=== PATIENT | female | born 1995 | race Caucasian/White ===

== ENCOUNTER 2017-04-03 12:46 | Emergency (ER) | payer OTHER ==
[~2017-04-03] VITALS: Ht 157.5 cm; Wt 50.0 kg
[~2017-04-03 12:46] MED LIST: IMI100 PO; NORE1TAB62 PO; ONDA4TAB9 PO; OXYC-474 PO; OXYC1TAB24 PO; POLY17PO6 PO; PROP10TA8 PO
[2017-04-03 13:00] VITALS: BP 112/61; PULSE 91; RESP 16; O2SAT 100
--- NOTE | 2017-04-03 13:22 | ED.REPORT ---
HPI-General Illness Date of Service April 03, 2017 ED Provider: Jace Frye MD 22 year old female presents to the ER for recovery from heroin abuse, requesting a prescription for Suboxone. She denies any significant underlying medical conditions, fever, chills, nausea, vomiting, and any other current illness. Patient does not voice any further medical complaints at this time. Nursing Notes Stated Complaint: NEED TO SEE THU BARNES Chief Complaint: General Complaint Nursing Notes Reviewed: Yes Allergies: Coded Allergies: No Known Allergies (Verified Allergy, Unknown, 04/03/17) Scheduled Buprenorphine HCl/Naloxone HCl (Suboxone 8 mg-2 mg Sl Film) 1 Each Film 1 EACH SL DAILY Norethindrone A-E Estradiol (Microgestin) 1 Each Tablet 1 TAB PO DAILY Polyethylene Glycol 3350 (Miralax) 17 Gm Powd.pack 17 GM PO DAILY Propranolol HCl (Propranolol HCl) 10 Mg Tablet 10 MG PO BID Sumatriptan (Imitrex) 100 Mg Tablet 100 MG PO PRN Scheduled PRN Ondansetron ODT (Zofran ODT) 4 Mg Tablet 4 MG PO Q4H PRN PRN For Nausea Oxycodone (Roxicodone) 5 Mg Tablet 5 MG PO Q4H PRN PRN For Pain oxyCODONE-Acetaminophen 5-325 mg (oxyCODONE-Acetaminophen 5-325 mg) 1 Each Tablet 1 TAB PO DAILY PRN PRN PRN General Time Seen by MD: 13:22 Chief Complaint Other (Heroin Abuse) Hx Obtained From: Patient Arrived By: Walk-in Sudden in Onset?: No Context Related History: Reports Drug use/abuse suspected Past Medical History Past Medical History pituitary cyst Past Surgical History back surgery Smoking History Former Smoker Social History Alcohol Use: Denies alcohol use Drug Use: IV drugs (Heroin) Other Social History: Good social support Occupation lives with boyfriend Ambulatory Status Independent Review of Systems Full Review of Systems Constitutional: Denies: Chills, Fever Respiratory: Denies: Non-productive cough, Shortness of breath Cardiovascular: Denies: Chest pain GI: Denies: Abdominal pain, Diarrhea, Nausea, Vomiting Complete sys rev & neg: except as marked. Physical Exam Vital Signs Vital Signs Date Time Temp Pulse Resp B/P Pulse Ox O2 Delivery O2 Flow Rate FiO2 04/03/17 13:00 36.3 91 16 112/61 100 Room Air Initial VS: Reviewed General/Constitutional: Well-developed, Well-nourished Head / Eyes: Atraumatic, Normocephalic, PERRL Neck: Supple, Non-tender, Full range of motion Skin: Warm, Dry, No cyanosis Neurologic: Alert, Oriented, Nonfocal Psychiatric: Mood/affect normal, Behavior normal, Normal thought content Upper Extremities Upper Extremity / MS: Inspection NL, No swelling, Non-tender, No erythema, No deformity, Neurologic intact, Vascular intact, No clubbing/cyanosis Lower Extremity / Pelvis / MS: Inspection NL, No swelling, Non-tender, No erythema, No deformity, Neurologic intact, Vascular intact, No edema Re-Eval/Medical Decision Time of Eval: 13:27 Re-Evaluation/Progress Note: Discussed plan to discharge with plan for close follow-up at [facility]. Patient is amenable to the plan. Return precautions given. All other questions addressed. Counseled Regarding: Diagnosis, Need for follow-up, When/why to return to ED Discharge & Departure Primary Impression: Opiate abuse, continuous Disposition: Home Discharge Condition All VS Reviewed: Yes Condition: Stable Patient Instructions: Buprenorphine/Naloxone (Into the mouth) Additional Instructions: I have made you an appointment at [facility] for tomorrow at 9:30 a.m. Make sure to arrive early and bring photo ID. Do not take the Suboxone until you are Clinical Opiate Withdrawal Scale (COWS) is greater than 20 or it has been at least 24 hours since your last heroin/ narcotic/opioid use. Referrals: [facility] (PCP) Elan Beltran MD (Family) [facility] Valentine Attestation Portions of this note were transcribed by Juan José Sánchez. I, Dr. Frye, personally performed the history, physical exam and medical decision-making; I reviewed and confirmed the accuracy of the information in the transcribed note. Signed by: Valentine Alvarado, 04/03/2017 at 13:48 copies to: Elan Beltran MD; [facility] ; [facility] Jace Danielson MD April 03, 2017 13:22 JUAN JOSÉ SÁNCHEZ April 03, 2017 13:32
[2017-04-03] MEDS ORDERED: BUPR1FIL3 SL (13:59)
== END 2017-04-03 14:22 | disposition home or self-care (01) ==
LOC: SED 12:46
DX: F11.10 Opioid abuse, uncomplicated (principal); Z87.891 Personal history of nicotine dependence